=== PATIENT | male | born 1980 | race Caucasian/White ===

== ENCOUNTER → 2025-02-04 | Outpatient (CLI) | payer BC, SELFPAY ==
--- NOTE | 2025-02-04 16:35 | XR_ITS ---
Examination: Abdomen AP single view Technique: AP portable supine abdomen, single view Exam date and time: February 04, 2025, 1644 hours INDICATIONS: Renal calculi 10 years. FINDINGS: Multiple left renal calculi, the largest 7 mm Mild small bowel ileus No ureteral calculi No obstruction No free air IMPRESSION: Multiple left renal calculi
== END | disposition home or self-care (01) ==
PROVIDERS: Referring Provider Surgery; Visit Provider Surgery
DX: N20.0 Calculus of kidney (principal)
CPT/HCPCS: 74018

== ENCOUNTER 2025-02-18 07:45 | Day surgery (SDC) | payer BC, SELFPAY ==
--- NOTE | 2025-02-17 07:00 | EKG_ITS ---
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
[2025-02-17 08:03] VITALS: BMI 25.5
[2025-02-17 08:49] LABS: Basophils # (Auto) 0.1 Thou/mm3 (0.0-0.2); Basophils % (Auto) 2 % (0-2.5); Eosinophils # (Auto) 0.2 Thou/mm3 (0.0-0.5); Eosinophils % (Auto) 6 % (0-10); Hematocrit 43.5 % (41.0-53.0); Hemoglobin 15.4 g/dL (13.5-16.0); Immature Granulocytes Auto 0.01 Thou/mm3 (0.00-0.00); Lymphocytes # (Auto) 1.0 Thou/mm3 (1.0-4.8); Lymphocytes % (Auto) 29 % (10-50); Mean Corpuscular HGB Conc 35.4 g/dl (31.0-37.0); Mean Corpuscular Hemoglobin 33.0 pg (25.0-35.0); Mean Corpuscular Volume 93 fL (80-100); Monocytes # (Auto) 0.5 Thou/mm3 (0.0-0.8); Monocytes % (Auto) 15 % (0-12); Neutrophils # (Auto) 1.6 Thou/mm3 (1.8-7.7); Neutrophils % (Auto) 48 % (37-80); Nucleated Red Blood Cell # 0.00 Thou/mm3 (0.00-0.00); Nucleated Red Blood Cell % 0 /100 WBC (0); Platelet Count 350 Thou/mm3 (140-440); RDW Standard Deviation 43.3 fL (35.1-43.9); Red Blood Count 4.67 Miln/mm3 (4.50-5.90); White Blood Count 3.3 Thou/mm3 (3.8-10.6)
[2025-02-17 08:59] LABS: Collection Type, Urine Clean Catch; Squamous Epithelial Cell,Urine 0 /hpf (0-5)
[2025-02-17 09:06] LABS: Anion Gap 5 (7-16); BUN/Creatinine Ratio 11 Ratio (12-20); Blood Urea Nitrogen 11 mg/dL (9-23); Calcium 9.3 mg/dL (8.3-10.6); Carbon Dioxide 33.5 mMol/L (20.0-31.0); Chloride 104 mMol/L (98-107); Creatinine (Component) 1.0 mg/dL (0.6-1.3); Estimated Creatinine Clearance 96.3 mL/min (>60); Glucose 104 mg/dL (74-106); Osmolality,Calculated 282 (275-295); Potassium 4.2 mMol/L (3.4-5.1); Sodium 142 mMol/L (136-145); eGFR > 60 See Note
[2025-02-17 10:22] LABS: Bacteria,Urine Rare; Bilirubin,Urine Negative (Negative); Blood,Urine Negative (Negative); Clarity,Urine Clear (Clear/Hazy); Color,Urine Yellow (Lt Yel-Yel); Glucose, Urine Negative (Negative); Ketones,Urine Negative (Negative); Leukocyte Esterase,Urine Negative (Negative); Nitrite,Urine Negative (Negative); PH,Urine 6.5 (5.0-7.0); Protein,Urine Negative (Neg - Trace); RBC,Urine 2 /hpf (0-3); Specific Gravity,Urine 1.022 (1.001-1.035); Urobilinogen,Urine Negative mg/dL (0.0-1.0); WBC,Urine 7 /hpf (0-5)
--- NOTE | 2025-02-17 15:49 | SUR.PREOP ---
Pt notified to come in at 0800 tomorrow for surgery.
[2025-02-18] VITALS (7 sets, daily range): BP systolic 132–144; BP diastolic 95–106; PULSE 65–81; RESP 12–16; TEMP 36.3–36.5; O2SAT 97–100; BMI 25.2
--- NOTE | 2025-02-18 06:00 | XR_ITS ---
Examination: Abdomen AP single view Technique: AP portable supine abdomen, single view Exam date and time: February 18, 2025, 0816 hours, comparison February 04, 2025 INDICATIONS: Preop lithotripsy, history left flank pain kidney stones on the left 15 years FINDINGS: 7 mm calculus lower pole left kidney No ureteral calculi noted Nonobstructive bowel gas pattern IMPRESSION: 7 mm calculus lower pole left kidney
--- NOTE | 2025-02-18 08:32 | ESHP_ITS ---
RE: KARENA GAO : 1980 DATE OF ADMISSION: 02/17/2025 HISTORY OF PRESENT ILLNESS: A 44-year-old gentleman who has been complaining of ___-sided flank pain. He has history of renal calculi. He had a lithotripsy before. Previous surgeries are two lithotripsies in the past in ___. The patient had a surgery for the cleft palate. He had a bone graft. He had a ankle repair. He had a cholecystectomy and hydrocelectomy. He has no children. He has no history of diabetes mellitus, no history of hypertension. ALLERGIES: NONE KNOWN. HOME MEDICATIONS: He takes ____ and bupropion. PHYSICAL EXAMINATION: HEENT: Clinical examination reveals HEENT normal. Neck: Supple. Lungs: Clear. Heart: Sounds are normal. Abdomen: Soft without any organomegaly. No guarding. No rigidity. Extremities: Normal. Genitourinary: Phallus normal. Testes are down in scrotum. 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 LABORATORY DATA: X-ray of the abdomen revealed left renal stones which are multiple, the largest being 7 mm in size. IMPRESSION: The patient has been complaining of the left-sided flank pain. PLAN: ESWL for the left kidney stones. Planned procedure risks and complications were discussed with the patient. Patient has understood them and agreed to proceed. DT: 12:45:49 TT: 13:33:00 Ref: [id number] - TID: [id number]
--- NOTE | 2025-02-18 08:59 | SUR.PREOP ---
Patient expressed gratitude for prayer before their procedure.
--- NOTE | 2025-02-18 11:14 | SUR.PHASEI ---
pt received from OR in recovery bay 2. pt asleep but responds to voice, breathing unlabored on oxymask 8l. v/s stable. report received from Clarke JOHNSON and Mack MCDOWELL.
--- NOTE | 2025-02-18 12:24 | SUR.PHASEII ---
pt awake and alert, breathing unlabored on room air. v/s stable. pt able to ambulate to wheelchair with steady gait. d/c instructions given with mother Marcy in room, all questions answered. pt d/c via wheelchair with all belongings.
--- NOTE | 2025-02-18 19:20 | ESOP_ITS ---
RE: KARENA GAO : 1980 DATE OF OPERATION: 02/18/2025 PREOPERATIVE DIAGNOSES: Left renal stone 8 mm in size midpole and left flank pain. POSTOPERATIVE DIAGNOSES: Left renal stone 8 mm in size midpole and left flank pain. PROCEDURE PERFORMED: Extracorporeal shockwave lithotripsy for the left renal stone. ANESTHESIA: General by Mr. Berry Ayala CRNA. INDICATIONS FOR THE PROCEDURE: Patient is 47 year old male with history of a previous urinary calculi, has a left sided flank pain. X-rays revealed left renal stone. The biggest stone is an 8 mm in size in the midpole. He is now brought in for ESWL for left renal stone. Planned procedure, risks, and complications have been discussed with the patient. Patient understood them and agreed to proceed. DESCRIPTION OF PROCEDURE: After the patient was brought to the operating table under adequate general anesthesia given by Mr. Berry Ayala CRNA, he was placed on Dornier Delta III lithotripsy machine. A 2500 shocks were given to the left renal stone up to power level 8. Patient tolerated the entire procedure well and left the room in good condition. DT: 10:55:59 TT: 19:19:00 Ref: [id number] - TID: [id number]
== END 2025-02-18 12:26 | disposition home or self-care (01) ==
PROVIDERS: PCP Physician Assistant; Referring Provider Surgery; Visit Provider Surgery
PROC: (CPT 50590; principal; 2025-02-18 10:00)
DX: N20.0 Calculus of kidney (principal); Z01.810 Encounter for preprocedural cardiovascular examination
CPT/HCPCS: 50590; 36415; 74018; 80048; 81001; 85025; 87086; 93005; A4649; J0694; J1885; J2250; J2405; J2704; J3010; J3490